=== PATIENT | male | born 1945 | race Caucasian/White ===

== ENCOUNTER 2017-12-21 14:05 | Emergency (ER) | payer OTHER, MEDICARE ==
--- NOTE | 2017-12-21 14:18 | EDPHY ---
H & P Stated Complaint: cough, n/v Time Seen by Provider: 12/21/17 14:17 HPI/ROS: CHIEF COMPLAINT: Cough, nausea, vomiting HISTORY OF PRESENT ILLNESS: The patient presents to the ED for evaluation of cough, nausea and vomiting. The patient has been treated with doxycycline for bronchitis by his primary care provider. He has had worsening symptoms since starting this medication. The patient does have a history of coronary artery disease in does have a history of atypical angina. He has had symptoms of nausea and vomiting with prior acute coronary syndrome per his report. The patient was seen at his primary care provider's office today and referred to the ED for further evaluation. REVIEW OF SYSTEMS: A comprehensive 10 point review of systems is otherwise negative aside from elements mentioned in the history of present illness. Source: Patient - Personal History Current Tetanus/Diphtheria Vaccine: Unsure Current Tetanus Diphtheria and Acellular Pertussis (TDAP): Unsure - Medical/Surgical History Hx Asthma: No Hx Chronic Respiratory Disease: Yes Hx Diabetes: No Hx Cardiac Disease: Yes Hx Renal Disease: No Hx Cirrhosis: No Hx Alcoholism: Yes Hx HIV/AIDS: No Hx Splenectomy or Spleen Trauma: No Other PMH: CAD with stents, COPD, - Social History Smoking Status: Former smoker - Physical Exam Exam: General Appearance: Alert, no distress Eyes: Pupils equal and round no pallor or injection ENT, Mouth: Mucous membranes moist Respiratory: Rhonchorous breath sounds bilaterally Cardiovascular: Regular rate and rhythm Gastrointestinal: Abdomen is soft and nontender, no masses, bowel sounds normal Neurological: 5/5 all 4 extremities Skin: Warm and dry, no rashes Musculoskeletal: Neck is supple nontender Extremities: symmetrical, full range of motion Constitutional: Initial Vital Signs Temperature (C) 36.8 C 12/21/17 14:11 Heart Rate 108 H 12/21/17 14:11 Respiratory Rate 16 12/21/17 14:11 Blood Pressure 124/83 H 12/21/17 14:11 O2 Sat (%) 94 12/21/17 14:11 O2 Delivery Mode Room Air Allergies/Adverse Reactions: No Known Allergies Allergy (Unverified 12/21/17 14:10) Home Medications: Medication Instructions Recorded Albuterol [Proventil Inhaler HFA 1 - 2 puffs IH Q4H #1 mdi 12/21/17 (*)] Aspirin 12/21/17 Carvedilol 12/21/17 Clopidogrel 12/21/17 Doxycycline Hyclate 12/21/17 Losartan Potassium 12/21/17 Ondansetron Odt [Zofran Odt] 4 mg PO Q4PRN PRN #20 tab 12/21/17 Zolpidem Tartrate 12/21/17 Medical Decision Making - Diagnostics EKG Interpretation: EKG: Complete interpretation has been separately recorded in the [facility] archive. Summary impression: Sinus rhythm, rate 87, ST segment depression and T-wave inversions noted throughout the lateral precordial leads. This is unchanged from the patient's prior EKG in 2013 Imaging Results: Imaging Impressions Chest X-Ray 12/21/17 14:21 Impression: COPD with perihilar bronchitis, but no focal infiltrate identified. ED Course/Re-evaluation: The patient presents to the ED with complaints of nausea and worsening respiratory symptoms in the setting of a recent diagnosis of bronchitis and doxycycline therapy. The patient was not noted to be hypoxic upon arrival. He was slightly tachycardic. His EKG demonstrates chronic ST segment depression and T-wave inversions in the precordial leads. The patient's troponin is negative. The patient's chest x-ray demonstrates no evidence of pneumonia. I do feel the patient can be discharged home with some antinausea medications. He has been encouraged to continue to use his albuterol inhaler. Differential Diagnosis: Differential diagnosis considered includes asthma, bronchitis, pneumonia - Data Points Laboratory Results: Laboratory Results 12/21/17 14:30 12/21/17 14:30 12/21/17 12/21/17 12/21/17 14:38 14:30 14:30 WBC RBC Hgb Hct MCV MCH MCHC RDW Plt Count MPV Neut % (Auto) Lymph % (Auto) Bea[place]gard % (Auto) Eos % (Auto) Baso % (Auto) Nucleat RBC Rel Count Absolute Neuts (auto) Absolute Lymphs (auto) Absolute Monos (auto) Absolute Eos (auto) Absolute Basos (auto) Absolute Nucleated RBC Immature Gran % Immature Gran # Sodium 136 mEq/L mEq/L (135-145) Potassium 4.3 mEq/L mEq/L (3.3-5.0) Chloride 97 mEq/L mEq/L (97-110) Carbon Dioxide 25 mEq/l mEq/l (22-31) Anion Gap 14 mEq/L mEq/L (8-16) BUN 25 mg/dL H mg/dL (7-23) Creatinine 1.1 mg/dL mg/dL (0.7-1.3) Estimated GFR > 60 Glucose 115 mg/dL H mg/dL (70-100) Calcium 11.1 mg/dL H mg/dL (8.5-10.4) Phosphorus Pending POC Troponin I 0.02 ng/mL ng/mL (0.00-0.08) Troponin I Pending NT-Pro-B Natriuret Pep Pending 12/21/17 14:30 WBC 12.37 10^3/uL H 10^3/uL (3.80-9.50) RBC 5.80 10^6/uL 10^6/uL (4.40-6.38) Hgb 19.3 g/dL H g/dL (13.7-17.5) Hct 54.4 % H % (40.0-51.0) MCV 93.8 fL fL (81.5-99.8) MCH 33.3 pg pg (27.9-34.1) MCHC 35.5 g/dL g/dL (32.4-36.7) RDW 12.8 % % (11.5-15.2) Plt Count 190 10^3/uL 10^3/uL (150-400) MPV 11.5 fL fL (8.7-11.7) Neut % (Auto) 70.2 % % (39.3-74.2) Lymph % (Auto) 19.3 % % (15.0-45.0) Beauregard % (Auto) 10.0 % % (4.5-13.0) Eos % (Auto) 0.0 % L % (0.6-7.6) Baso % (Auto) 0.2 % L % (0.3-1.7) Nucleat RBC Rel Count 0.0 % % (0.0-0.2) Absolute Neuts (auto) 8.67 10^3/uL H 10^3/uL (1.70-6.50) Absolute Lymphs (auto) 2.39 10^3/uL 10^3/uL (1.00-3.00) Absolute Monos (auto) 1.24 10^3/uL H 10^3/uL (0.30-0.80) Absolute Eos (auto) 0.00 10^3/uL L 10^3/uL (0.03-0.40) Absolute Basos (auto) 0.03 10^3/uL 10^3/uL (0.02-0.10) Absolute Nucleated RBC 0.00 10^3/uL 10^3/uL (0-0.01) Immature Gran % 0.3 % % (0.0-1.1) Immature Gran # 0.04 10^3/uL 10^3/uL (0.00-0.10) Sodium Potassium Chloride Carbon Dioxide Anion Gap BUN Creatinine Estimated GFR Glucose Calcium Phosphorus POC Troponin I Troponin I NT-Pro-B Natriuret Pep Point of Care Test Results: Chemistry 12/21/17 14:38 POC Troponin I 0.02 ng/mL ng/mL (0.00-0.08) Departure - Departure Disposition: Home, Routine, Self-Care Clinical Impression: Acute bronchitis Condition: Good Instructions: Acute Bronchitis (ED) Additional Instructions: 1. Please continue your albuterol inhaler 4 times a day for cough. 2. Your chest x-ray demonstrates no evidence of an obvious pneumonia. 3. Please use Zofran as needed for nausea. 4. Please return to the ED for markedly worsening symptoms or other concerns. Referrals: ALANA DELUNA [Primary Care Provider] - As per Instructions Prescriptions: Albuterol [Proventil Inhaler HFA (*)] 1 - 2 puffs IH Q4H #1 mdi Ondansetron Odt [Zofran Odt] 4 mg PO Q4PRN PRN #20 tab PRN Reason: For Nausea
--- NOTE | 2017-12-21 14:33 | CPEKG ---
Test Reason : OPEN Blood Pressure : / mmHG Vent. Rate : 087 BPM Atrial Rate : 088 BPM P-R Int : 161 ms QRS Dur : 078 ms QT Int : 365 ms P-R-T Axes : 079 070 103 degrees QTc Int : 439 ms Sinus rhythm CORY, consider biatrial enlargement Repol abnrm suggests ischemia, diffuse leads Confirmed by Rios Harp ([id number]), manager editorial Spencer Gomez ([id number]) on 12/21/2017 2:32:30 PM Referred By: Confirmed By:Rios Harp
[2017-12-21 14:55] LABS: PLATELET COUNT 190 10^3/uL (150-400)
[2017-12-21 15:27] VITALS: BP 140/68
== END 2017-12-21 15:27 | disposition home or self-care (01) ==
DX: J20.9 Acute bronchitis, unspecified (principal); Z87.891 Personal history of nicotine dependence
CPT/HCPCS: 84484-PO

== ENCOUNTER 2017-12-27 11:39 | Emergency (ER) | payer OTHER, MEDICARE ==
--- NOTE | 2017-12-27 13:44 | EDPHY ---
HPI/HX/ROS/PE/MDM Narrative: CHIEF COMPLAINT: Bronchitis HISTORY OF PRESENT ILLNESS: This patient is a 72 year old male with history of COPD, CAD s/p stent placement who presents with continued bronchitis symptoms. His symptoms began about two weeks ago and did a course of doxycycline as prescribed by his primary care provider. This helped to relieve his symptoms but he was feeling worse 12/21 and was evaluated in this emergency department and diagnosed with bronchitis. He tried to contact his PCP for another course of antibiotics, but his provider is out of town and staff recommended he return to the emergency department for worsening symptoms. At his recent ED visit he was given albuterol MDI and encourage to use frequently. He complains of worsening productive cough, rhinorrhea, and shortness of breath. No fever, chills, chest pain, palpitations, vomiting, diarrhea, urinary complaints, headache, lightheadedness. REVIEW OF SYSTEMS: A comprehensive 10 system review of systems is otherwise negative aside from elements mentioned in the history of present illness and medical decision making. PAST MEDICAL HISTORY: COPD. CAD s/p stent placement. SOCIAL HISTORY: Retired. Nonsmoker. Lives in [place]. [employer] [address]. Linder. VITAL SIGNS: Reviewed by me GENERAL: Well-developed, well-nourished, resting comfortably in no respiratory distress. Frequent wet cough. HEENT: Atraumatic. Eyes: No icterus, no injection. Mouth: moist mucous membranes. No erythema or lesions. Neck: supple with no adenopathy. LUNGS: Diffuse wheezes, No rhonchi or rales. CARDIAC: Regular rate and rhythm, no rubs, murmurs or gallops. ABDOMEN: Soft, nontender, nondistended, bowel sounds normal. BACK: No CVA tenderness. EXTREMITIES: No trauma. No edema. Range of motion is normal throughout. NEURO: Alert and oriented, grossly nonfocal. SKIN: Warm and dry, no rash. PSYCHIATRIC: Normal mentation, no agitation. Portions of this note were transcribed by a medical affairs specialist. I personally performed a history, physical exam, medical decision making, and confirmed accuracy of information the transcribed note. ED Course: 72 y/o male presents with continued bronchitis symptoms. Diffuse wheezes on auscultation. Plan for CXR to rule out pneumonia or other acute processes. Plan to administer DuoNeb and 60mg PO Prednisone for symptom relief. CXR consistent with bronchitis. Patient is feeling better following DuoNeb administration. Plan to d/c home in good condition with prescription for azithromycin, Prednisone 40mg. I recommended he use his albuterol inhaler more frequently. He has also requested a cough suppressant to help him sleep and states Guaifenesin AC worked well for him in the past, so I will provide a prescription for this. He will follow up with his primary care provider. He is comfortable with this plan. MDM: Differential diagnosis for the patient's cough was considered including but not limited to viral versus bacterial bronchitis, asthma, COPD, pulmonary emboli, upper respiratory infection, lower respiratory infection, and bronchospasm. - Data Points Imaging Results: Chest X-Ray 12/27/17 12:26 Impression: Probable mild bronchitis. Other chronic findings as above which are stable. Medications Given: Discontinued Medications Albuterol/Ipratropium (Duoneb) 3 ml IH EDNOW ONE Stop: 12/27/17 13:54 Last Admin: 12/27/17 13:55 Dose: 3 ml Prednisone (Prednisone) 60 mg PO EDNOW ONE Stop: 12/27/17 13:55 Last Admin: 12/27/17 14:07 Dose: 60 mg General Time Seen by Provider: 12/27/17 13:42 Initial Vital Signs: Initial Vital Signs Temperature (C) 36.3 C 12/27/17 11:47 Heart Rate 84 12/27/17 11:47 Respiratory Rate 18 12/27/17 11:47 Blood Pressure 153/83 H 12/27/17 11:47 O2 Sat (%) 97 12/27/17 11:47 O2 Delivery Mode Room Air Allergies/Adverse Reactions: No Known Allergies Allergy (Unverified 12/27/17 11:50) Home Medications: Medication Instructions Recorded Albuterol [Proventil Inhaler HFA 1 - 2 puffs IH Q4H #1 mdi 12/21/17 (*)] Aspirin 12/21/17 Carvedilol 12/21/17 Clopidogrel 12/21/17 Doxycycline Hyclate 12/21/17 Losartan Potassium 12/21/17 Ondansetron Odt [Zofran Odt] 4 mg PO Q4PRN PRN #20 tab 12/21/17 Zolpidem Tartrate 12/21/17 Azithromycin [Zithromax] 250 mg PO DAILY #6 tab 12/27/17 Codeine Phosphate/Guaifenesin 10 ml PO HS PRN 6 Days liquid 12/27/17 [Guaiatussin AC Liquid] predniSONE 40 mg PO DAILY 3 Days tab 12/27/17 Departure - Departure Disposition: Home, Routine, Self-Care Clinical Impression: Acute bronchitis Condition: Good Instructions: Prednisone (By mouth), Guaifenesin (By mouth), Azithromycin (By mouth), Acute Bronchitis (ED) Additional Instructions: 1. Use your albuterol inhaler as prescribed four times daily. 2. Take Prednisone as prescribed. 3. Take Azithromycin as prescribed. It is important to finish your entire course of antibiotics. 4. Try a cough medication with guaifenesin. These are often available over the counter, however we will provide a prescription today. Take guaifenesin AC at night as prescribed. 5. Follow up with your primary care provider in 2-3 days. Referrals: ALANA DELUNA [Primary Care Provider] - As per Instructions Prescriptions: Azithromycin [Zithromax] 250 mg PO DAILY #6 tab Codeine Phosphate/Guaifenesin [Guaiatussin AC Liquid] 10 ml PO HS PRN 6 Days liquid PRN Reason: Cough, Mild predniSONE 40 mg PO DAILY 3 Days tab Report Scribed for: Kimberly Lowery Report Scribed by: Ashlee Medrano Date of Report: 12/27/17 Time of Report: 14:17
[2017-12-27] MEDS ORDERED: IPRATROPIUM/ALBUTEROL 3 ML DEYVIAL IH ONE (13:53)
[2017-12-27] MEDS ORDERED: predniSONE 20 MG TAB PO ONE (13:54)
[2017-12-27 13:56] VITALS: BP 142/97
== END 2017-12-27 14:15 | disposition home or self-care (01) ==
DX: J20.9 Acute bronchitis, unspecified (principal); J44.0 Chronic obstructive pulmonary disease with (acute) lower respiratory infection; I25.10 Atherosclerotic heart disease of native coronary artery without angina pectoris; Z95.5 Presence of coronary angioplasty implant and graft
CPT/HCPCS: 71046; 96372; 99284; J7512

== ENCOUNTER → 2018-02-08 | Outpatient (CLI) | payer OTHER, MEDICARE | LOC: FIMAGING 14:16 | PROVIDERS: ATTEND Nurse Practitioner Adult Health | DX: M79.601 Pain in right arm (principal); I77.9 Disorder of arteries and arterioles, unspecified; E78.5 Hyperlipidemia, unspecified; I10 Essential (primary) hypertension; I25.10 Atherosclerotic heart disease of native coronary artery without angina pectoris ==